=== PATIENT | male | born 1985 | race Caucasian/White ===

== ENCOUNTER → 2021-05-20 | Emergency (ER) | payer BC, MEDICAID ==
[~2021-05-20] VITALS: Ht 182.9 cm; Wt 65.9 kg
[~2021-05-20] MED LIST: CYCL-1 PO; IBUP-1984 PO; ketorolac tromethamine 15mg/ml inj. IM ONE
[2021-05-20 17:42] VITALS: BP 183/109
== END | disposition home or self-care (01) ==
LOC: ER 15:30
DX: M54.2 Cervicalgia (principal); G44.209 Tension-type headache, unspecified, not intractable; Z79.899 Other long term (current) drug therapy
CPT/HCPCS: 99283